=== PATIENT | male | born 1965 ===

== ENCOUNTER 2025-05-15 04:13 | Emergency (ER) | payer OTHER ==
[~2025-05-15] VITALS: Ht 170.2 cm; Wt 74.5 kg
[2025-05-15 04:15] VITALS: BP 151/68; PULSE 100; RESP 16; TEMP 98.1; O2SAT 100
== END 2025-05-15 05:12 | disposition left against medical advice (07) ==
LOC: EMS 04:13
DX: S30.850A Superficial foreign body of lower back and pelvis, initial encounter (principal); Z53.21 Procedure and treatment not carried out due to patient leaving prior to being seen by health care provider; X58.XXXA Exposure to other specified factors, initial encounter; Y93.89 Activity, other specified; Y92.89 Other specified places as the place of occurrence of the external cause; Y99.8 Other external cause status
CPT/HCPCS: 99281; Z7502